=== PATIENT | female | born 1975 | race African-American/Black ===

== ENCOUNTER 2022-10-23 10:53 | Emergency (ER) | payer OTHER, SELFPAY ==
[2022-10-23 11:07] VITALS: BP 158/82; PULSE 93; RESP 16; TEMP 37.2; O2SAT 99
--- NOTE | 2022-10-23 11:50 | ED.EYEPROB ---
HPI - Eye Problem General Chief complaint: Eye Problems Stated complaint: right eye irritation Time Seen by Provider: 10/23/22 11:34 Source: patient and RN notes reviewed Mode of arrival: ambulatory Limitations: no limitations History of Present Illness HPI Narrative: Patient presents today complaining of 5-6 day history of right eye redness, watering, and irritation. [facility], diagnosed with bacterial conjunctivitis, and given a prescription for ofloxacin drops. States her symptoms worsen to include the left eye a few days later and she called there and was told to use it in the left eye as well. Patient states her symptoms continued to worsen and she came in for evaluation. Denies vision changes. She has been wearing her glasses instead of contacts for approximately the past month. She has been taking Tylenol for pain without much relief. Denies foreign body sensation or purulent discharge. Related Data Home Medications Medication Instructions Recorded Confirmed amlodipine 5 mg tablet 5 mg PO DAILY 10/23/22 10/23/22 atorvastatin 40 mg tablet 40 mg PO DAILY 10/23/22 10/23/22 ofloxacin 0.3 % eye drops 3 drp EACH EYE TID 10/23/22 10/23/22 Allergies Allergy/AdvReac Type Severity Reaction Status Date / Time cephalexin [From Keflex] Allergy Intermediate Hives Verified 10/23/22 11:18 Review of Systems Review of Systems: CONSTITUTIONAL: Denies body aches, fever, chills, or sweats. EYES: + right eye redness, irritation, watering ENT: Denies rhinorrhea, congestion, sore throat, or otalgia. CARDIOVASCULAR: Denies chest pain, palpitations, or edema. RESPIRATORY: Denies cough or dyspnea. GASTROINTESTINAL: Denies abdominal pain, nausea, vomiting, or diarrhea. GENITOURINARY: Denies dysuria or hematuria. SKIN: Denies rash, itching, or wounds. MUSCULOSKELETAL: Denies back pain, joint pain, or myalgia. NEUROLOGIC: Denies headache, numbness, tingling, or weakness. PSYCH: Denies depression or anxiety. PMFSH Comments At time of signature, I have reviewed and agree with nursing past medical, surgical, social and family history unless otherwise noted. Please see nursing chart for further information. There is no relevant family history pertinent to the presenting complaint Exam Narrative: GENERAL: Well-appearing, well-nourished, and in no acute distress. HEAD: Normocephalic, atraumatic. EYES: EOMI. PERRL. Left eye normal. Right eye: Mild to moderately injected conjunctiva. Significant chemosis. Mild active watering. No purulent discharge noted. Lids and lashes normal. ENT: Mucous membranes pink and moist. NECK: Normal AROM. CHEST: No respiratory distress. EXTREMITIES: Normal range of motion. No edema. SKIN: Warm, dry, no rash. Capillary refill normal. Normal skin turgor. NEURO: No focal deficits. Alert and oriented x3. Gait steady. PSYCH: Normal affect. No signs of depression or anxiety. Course Course Level of Care: Express Care Visit Vital Signs Vital signs: Vital Signs Temperature 99.0 F 10/23/22 11:07 Pulse Rate 93 10/23/22 11:07 Respiratory Rate 16 10/23/22 11:07 Blood Pressure 158/82 H 10/23/22 11:07 Pulse Oximetry 99 10/23/22 11:07 Oxygen Delivery Room Air 10/23/22 11:07 Temperature 99.0 F 10/23/22 11:07 Pulse Rate 93 10/23/22 11:07 Respiratory Rate 16 10/23/22 11:07 Blood Pressure 158/82 H 10/23/22 11:07 Pulse Oximetry 99 10/23/22 11:07 Oxygen Delivery Room Air 10/23/22 11:07 Reviewed. Pt has been instructed to follow up with her PCP regarding her elevated blood pressure today. MDM - Eye Problem MDM Narrative Medical decision making narrative: Patient's symptoms consistent with allergic conjunctivitis. Suggest using an antihistamine eyedrops such as Zaditor and taking a daily antihistamine such as Zyrtec. Also suggest following up with her eye doctor at [facility] on Tuesday if symptoms do
== END 2022-10-23 12:08 | disposition home or self-care (01) ==
PROVIDERS: Emergency Provider Nurse Practitioner; PCP Family Medicine
DX: H10.11 Acute atopic conjunctivitis, right eye (principal); E78.00 Pure hypercholesterolemia, unspecified; I10 Essential (primary) hypertension
CPT/HCPCS: 99211; G0463